=== PATIENT | male | born 1950 ===

== ENCOUNTER 2018-05-18 12:01 | Inpatient (IN) | payer MEDICARE, OTHER ==
[2018-05-18 13:47] LABS: BASO # 0.1 K/uL (0.0-0.2); MONO # 1.1 K/uL (0.0-0.8); RED CELL DISTRIBUTION WIDTH 13.9 % (11.5-14.5)
[2018-05-18 13:49] LABS: BASO % 0.3 % (0.0-2.0); LYMPH # 1.6 K/uL (1.0-4.3); LYMPH % 9.2 % (20.0-40.0); MEAN CELL VOLUME 91.8 fL (80.0-94.0); MEAN CORPUSCULAR HEMOGLOBIN 31.7 pg (27.0-31.0); MEAN CORPUSCULAR HGB CONC 34.5 g/dL (33.0-37.0); MEAN PLATELET VOLUME 8.8 fL (7.2-11.7); MONO % 6.2 % (0.0-10.0); NEUT # 14.2 K/uL (1.8-7.0); NEUT % 84.3 % (50.0-75.0); NRBC % 0.1 % (0.0-2.0); PLATELET COUNT 198 K/uL (130-400); WHITE BLOOD COUNT 16.9 K/uL (4.8-10.8)
[2018-05-18 13:58] LABS: ALB/GLOB RATIO 1.1 (1.0-2.1); ALBUMIN 4.4 g/dL (3.5-5.0); ALT/SGPT 28 U/L (21-72); AMYLASE 249 U/L (30-110); AST/SGOT 26 U/L (17-59); BLOOD UREA NITROGEN 10 mg/dL (9-20); CALCIUM 9.3 mg/dl (8.6-10.4); GFR NON-AFRICAN AMERICAN > 60; LIPASE 46 U/L (23-300)
[2018-05-18 14:01] LABS: SQUAMOUS EPITHIAL < 1 /hpf (0-5); URINE BILIRUBIN NEGATIVE (NEGATIVE); URINE BLOOD 1+ (NEGATIVE); URINE CLARITY Clear (Clear); URINE COLOR Yellow (YELLOW); URINE GLUCOSE (UA) NORMAL (Normal); URINE LEUKOCYTE ESTERASE NEG Leu/uL (Negative); URINE PROTEIN 1+ mg/dL (NEGATIVE); URINE UROBILINOGEN NORMAL mg/dL (0.2-1.0)
[2018-05-18] MEDS ORDERED: Iohexol 240 (50 ml) PO STA (14:13)
[2018-05-18] MEDS ORDERED: Iohexol 240 (50 ml) ONE (14:19)
[2018-05-18 14:39] LABS: BANDS 4 % (0-2); LYMPHOCYTE 8 % (20-40); MONOCYTE 6 % (0-10); NEUTROPHIL 82 % (50-75); TOTAL CELLS COUNTED 100
[2018-05-18 14:40] LABS: PLATELET ESTIMATE NORMAL (NORMAL)
[2018-05-18] MEDS ORDERED: Iohexol 350mg/ml 100 ML ONE (16:01)
--- NOTE | 2018-05-18 16:39 | CT ---
Date of service: 05/18/2018 PROCEDURE: CT Abdomen and Pelvis with contrast HISTORY: PAIN, VOMITING, ELEVATED WBCs COMPARISON: None. TECHNIQUE: Contrast dose: 100 mL Omnipaque 350 Radiation dose: Total exam DLP = 278.5 mGy-cm. This CT exam was performed using one or more of the following dose reduction techniques: Automated exposure control, adjustment of the mA and/or kV according to patient size, and/or use of iterative reconstruction technique. FINDINGS: LOWER THORAX: Cardiomegaly. No focal consolidation or pleural effusion. LIVER: Hepatic steatosis. Scattered hepatic cysts, the largest is in the posterior right hepatic lobe measuring 1.7 cm. No gross lesion or ductal dilatation. GALLBLADDER AND BILE DUCTS: Distended gallbladder with wall thickening/ edema and pericholecystic inflammatory change. Calcified gallstone seen in the cystic duct. CBD within normal limits. PANCREAS: Unremarkable. No gross lesion or ductal dilatation. SPLEEN: Unremarkable. ADRENALS: Unremarkable. No mass. KIDNEYS AND URETERS: Unremarkable. No hydronephrosis. No solid mass. VASCULATURE: Unremarkable. No aortic aneurysm. BOWEL: Colonic diverticulosis. No obstruction. No gross mural thickening. APPENDIX: Normal appendix. PERITONEUM: Large fat containing left inguinal hernia. No free fluid. No free air. LYMPH NODES: Unremarkable. No enlarged lymph nodes. BLADDER: Unremarkable. REPRODUCTIVE: Unremarkable. BONES: No acute fracture. Degenerative changes. OTHER FINDINGS: None. IMPRESSION: Acute cholecystitis with small calcified gallstone in the cystic duct. CBD within normal limits. Findings conveyed to the emergency department by Dr. Carmona at 4:34 p.m. on 05/18/2018.
[2018-05-18] MEDS ORDERED: Piperacillin/Tazobact 3.375 gm 100 ML IV STA (17:03)
--- NOTE | 2018-05-18 17:04 | C.PDOC ---
History Of Present Illness 67-year-old male, presents to the emergency department with complaints of upper abdominal pain, intermittently over the past several days. States he was seen by Dr Espinal, and given Rx for Pantoprazole, but he is non compliant.States yesterday pain worsened after he ate, followed by nausea and vomiting. Denies fever or chills. Time Seen by Provider: 05/18/18 12:35 Chief Complaint (Nursing): Abdominal Pain History Per: Patient History/Exam Limitations: no limitations Onset/Duration Of Symptoms: Days Current Symptoms Are (Timing): Still Present Severity: Moderate Past Medical History Reviewed: Historical Data, Nursing Documentation, Vital Signs Vital Signs: Last Vital Signs Temp 98.3 F 05/19/18 08:41 Pulse 71 05/19/18 08:41 Resp 20 05/19/18 08:41 BP 116/71 05/19/18 08:41 Pulse Ox 96 05/20/18 18:55 - Medical History PMH: HTN, Hypercholesterolemia Family History: States: No Known Family Hx - Social History Hx Alcohol Use: No Hx Substance Use: No - Immunization History Hx Tetanus Toxoid Vaccination: No Hx Influenza Vaccination: No Hx Pneumococcal Vaccination: No Review Of Systems Constitutional: Negative for: Fever Cardiovascular: Negative for: Chest Pain, Palpitations Respiratory: Negative for: Shortness of Breath Gastrointestinal: Positive for: Nausea, Vomiting, Abdominal Pain Musculoskeletal: Negative for: Back Pain Physical Exam - Physical Exam Appears: Non-toxic, No Acute Distress Skin: Normal Color, Warm, Dry, No Rash Head: Atraumatic, Normacephalic Eye(s): bilateral: Normal Inspection Nose: Normal Oral Mucosa: Moist Lips: Normal Appearing Neck: Normal ROM Chest: Symmetrical Cardiovascular: Rhythm Regular, No Murmur Respiratory: Normal Breath Sounds, No Accessory Muscle Use Gastrointestinal/Abdominal: Soft, Tenderness (Upper, periumbilical) Extremity: Normal ROM, No Deformity Neurological/Psych: Oriented x3, Normal Speech ED Course And Treatment - Laboratory Results Result Diagrams: 05/19/18 11:40 05/19/18 11:40 O2 Sat by Pulse Oximetry: 96 (RA) Pulse Ox Interpretation: Normal - CT Scan/US CT Other Rad Studies (CT/US): Read By Radiologist, Radiology Report Reviewed CT/US Interpretation: Accession No. : [id number]. Patient Name / ID : VALENTIN MARTINEZ / [id number]. Exam Date : 05/18/2018 16:05:52 ( Approved ). Study Comment : Sex / Age : M / 67Y. Creator : Reyna Frederick. Dictator : Jorgito Gilliam MD. Distillery Manager : Hepatologist : Jorgito Gilliam MD. Approver2 : Report Date : 05/18/2018 16:20:23. My Comment : . Date of service: 05/18/2018. PROCEDURE: CT Abdomen and Pelvis with contrast. HISTORY : PAIN, VOMITING, ELEVATED WBCs. COMPARISON: None. TECHNIQUE: Contrast dose : 100 mL Omnipaque 350. Radiation dose: Total exam DLP = 278.5 mGy-cm. This CT exam was performed using one or more of the following dose reduction techniques: Automated exposure control, adjustment of the mA and/or kV according to patient size, and/or use of iterative reconstruction technique. FINDINGS: LOWER THORAX: Cardiomegaly. No focal consolidation or pleural effusion. LIVER: Hepatic steatosis. Scattered hepatic cysts, the largest is in the posterior right hepatic lobe measuring 1.7 cm. No gross lesion or ductal dilatation. GALLBLADDER AND BILE DUCTS: Distended gallbladder with wall thickening/ edema and pericholecystic inflammatory change. Calcified gallstone seen in the cystic duct. CBD within normal limits. PANCREAS: Unremarkable. No gross lesion or ductal dilatation. SPLEEN: Unremarkable. ADRENALS: Unremarkable. No mass. KIDNEYS AND URETERS: Unremarkable. No hydronephrosis. No solid mass. VASCULATURE: Unremarkable. No aortic aneurysm. BOWEL: Colonic diverticulosis. No obstruction. No gross mural thickening. APPENDIX: Normal appendix. PERITONEUM: Large fat containing left inguinal hernia. No free fluid. No free air. LYMPH NODES: Unremarkable. No enlarged lymph nodes. BLADDER: Unremarkable. REPRODUCTIVE: Unremarkable. BONES: No acute fracture. Degenerative changes. OTHER FINDINGS: None. IMPRESSION: Acute cholecystitis with small calcified gallstone in the cystic duct. CBD within normal limits. Findings conveyed to the emergency department by Dr. Carmona at 4: 34 p.m. on 05/18/2018. Progress Note: Case was d/w who accepted patient to his service for an admission and will call Surgery consult . Medical Decision Making Medical Decision Making: Plan: * CT Abd/Pel * Bloodwork * Zosyn * UA * Reassess and Disposition Labs with significant Leukocytosis, Case discussed with surgery resident and Zosyn ordered. Disposition - Disposition Disposition: HOSPITALIZED Disposition Time: 18:36 Condition: FAIR - Clinical Impression Clinical Impression: Acute cholecystitis - Scribe Statement The provider has reviewed the documentation as recorded by the Scribe (Annabelle Kellogg) All medical record entries made by the Scribe were at my direction and personally dictated by me. I have reviewed the chart and agree that the record accurately reflects my personal performance of the history, physical exam, medical decision making, and the department course for this patient. I have also personally directed, reviewed, and agree with the discharge instructions and disposition. Decision To Admit - Pt Status Changed To: Hospital Disposition Of: Inpatient - Admit Certification Admit to Inpatient:: After my assessment, the patient will require hospitalization for at least two midnights. This is because of the severity of symptoms shown, intensity of services needed, and/or the medical risk in this patient being treated as an outpatient. - InPatient: Physician Admission Certification:: pt will need to stay for more then 2 days - . Bed Request Type: Regular Admitting Physician: Michelle Espinal Patient Diagnosis: Acute cholecystitis
[2018-05-18] MEDS ORDERED: Piperacillin/Tazobact 3.375 gm 100 ML IVPB ONE (17:35)
[2018-05-18] MEDS ORDERED: Piperacillin/Tazobact 3.375 GM in Sodium Chloride 100 ML IVPB SCH (18:45)
[2018-05-18] MEDS: Lactated Ringer's 1,000 ML IV SCH (20:15)
--- NOTE | 2018-05-18 20:40 | CP.PCM.CON ---
History of Present Illness - History of Present Illness History of Present Illness: 67M with PMH of hypertension, depression, diabetes, glaucoma, presents to [facility] ED with complaints of abdominal pain. Patient reports abdominal pain has been on going for past 3-4 days. He reports having a couple of bouts of emesis. Patient denies any association with abdominal pain and food intake. States pain is located at epigastric region and at times will radiate towards RUQ. At time of examination patient denied fever/chills, nausea/vomiting, abdominal pain. PMH:Hypertension, depression, diabetes, glaucoma Fam Hx: DM, HTN Social history: Denies EtOH, Denies illicit drug use Review of Systems - Review of Systems Review of Systems: 12 pt ROS negative, except as stated in HPI Past Patient History - Past Social History Smoking Status: Never Smoked - CARDIAC Hx Hypercholesterolemia: Yes Hx Hypertension: Yes - ENDOCRINE/METABOLIC Hx Diabetes Mellitus Type 2: Yes - PSYCHIATRIC Hx Substance Use: No - SURGICAL HISTORY Hx Surgeries: No - ANESTHESIA Hx Anesthesia: No Meds Allergies/Adverse Reactions: Allergies Allergy/AdvReac Type Severity Reaction Status Date / Time No Known Allergies Allergy Unverified 05/18/18 12:12 - Medications Medications: Current Medications Acetaminophen (Tylenol 325mg Tab) 650 mg PO STAT PRN PRN Reason: fever>100.4 Clonazepam (Klonopin) 0.5 mg PO HS [facility] Lactated Ringer's (Lactated Ringer's) 1,000 mls @ 100 mls/hr IV .Q10H [facility] Last Admin: 05/18/18 20:15 Dose: 100 mls/hr Piperacillin Sod/Tazobactam Sod (Zosyn 3.375 Gm Iv Premix) 3.375 gm in 50 mls @ 100 mls/hr IVPB Q6H [facility] PRN Reason: Protocol Ondansetron HCl (Zofran Inj) 4 mg IVP Q6H PRN PRN Reason: Nausea/Vomiting Pantoprazole Sodium (Protonix Inj) 40 mg IVP DAILY [facility] Physical Exam - Constitutional Appears: No Acute Distress - Head Exam Head Exam: NORMOCEPHALIC - ENT Exam ENT Exam: Mucous Membranes Moist - Respiratory Exam Respiratory Exam: NORMAL BREATHING PATTERN - Cardiovascular Exam Cardiovascular Exam: +S1, +S2 - GI/Abdominal Exam GI & Abdominal Exam: Soft. absent: Distended, Firm, Guarding, Tenderness - Neurological Exam Neurological exam: Alert, Oriented x3 - Psychiatric Exam Psychiatric exam: Normal Mood - Skin Skin Exam: Dry, Intact, Warm Results - Vital Signs Recent Vital Signs: Last Vital Signs Temp 97.7 F 05/18/18 16:36 Pulse 70 05/18/18 16:36 Resp 14 05/18/18 16:36 BP 144/88 05/18/18 16:36 Pulse Ox 96 05/18/18 18:37 - Labs Result Diagrams: 05/18/18 13:43 05/18/18 13:43 Labs: Laboratory Results - last 24 hr 05/18/18 05/18/18 05/18/18 13:43 13:43 13:43 WBC 16.9 H RBC 4.40 Hgb 14.0 Hct 40.4 MCV 91.8 MCH 31.7 H MCHC 34.5 RDW 13.9 Plt Count 198 MPV 8.8 Neut % (Auto) 84.3 H Lymph % (Auto) 9.2 L [place] % (Auto) 6.2 Eos % (Auto) 0.0 Baso % (Auto) 0.3 Neut # (Auto) 14.2 H Lymph # (Auto) 1.6 [place] # (Auto) 1.1 H Eos # (Auto) 0.0 Baso # (Auto) 0.1 Neutrophils % (Manual) 82 H Band Neutrophils % 4 H Lymphocytes % (Manual) 8 L Monocytes % (Manual) 6 Platelet Estimate Normal RBC Morphology Normal Sodium 135 Potassium 3.6 Chloride 97 L Carbon Dioxide 25 Anion Gap 17 BUN 10 Creatinine 1.0 Est GFR ( Amer) > 60 Est GFR (Non-Af Amer) > 60 Random Glucose 122 H Calcium 9.3 Total Bilirubin 0.8 AST 26 ALT 28 Alkaline Phosphatase 97 Total Protein 8.4 H Albumin 4.4 Globulin 4.0 H Albumin/Globulin Ratio 1.1 Amylase 249 H Lipase 46 Urine Color Yellow Urine Clarity Clear Urine pH 6.0 Ur Specific [place] 1.017 Urine Protein 1+ H Urine Glucose (UA) Normal Urine Ketones Trace Urine Blood 1+ H Urine Nitrate Negative Urine Bilirubin Negative Urine Urobilinogen Normal Ur Leukocyte Esterase Neg Urine WBC (Auto) 3 Urine RBC (Auto) 8 H Ur Squamous Epith Cells < 1 Hyaline Casts 6-10 H Assessment & Plan - Assessment and Plan (Free Text) Assessment: 67M with chronic cholecystitis Plan: -NPO -IVF -ABx -Analgesic prn -Anti-emetic prn -F/u Abd U/S -F/u AM labs D/w Dr. Alesia Russ PGY3
[2018-05-18 23:16] VITALS: RESP 20; O2SAT 96
[2018-05-19] MEDS: Lactated Ringer's 1,000 ML IV SCH (04:56)
[2018-05-19] MEDS: Piperacill/Tazo 3.375gm in Dex 3.375 GM/50 ML BAG IVPB SCH ×2 (04:57→09:49)
--- NOTE | 2018-05-19 08:15 | CP.PCM.HP ---
History of Present Illness - History of Present Illness History of Present Illness: Chief complaint: Abdominal pain HPI: 67-year-old male with a history of hypertension, depression, diabetes, glaucoma came to the emergency room with the comparing of at least 3-4 days history of increasing abdominal pain, epigastric pain, nausea, and episodes of vomiting started yesterday. Patient the past was having ongoing abdominal pain, at the time patient was given proton pump inhibitor, but patient was not taking it on a regular basis. He was also seen by irrigation equipment mechanic. He comes to the emergency room with the worsening pain, epigastric in origin, radiating to the back sometimes. Nausea noted, associated with the 1-2 episodes of vomiting bilious. He did not have any fever No chills noted. Denies any headache. No other systemic symptoms Past medical history: Hypertension, depression, diabetes, glaucoma Surgical history: Dilated patient of urethral stricture in the past and Family history: Parents had a history of diabetes and hypertension Siblings also has a history of diabetes hypertension and obstructive sleep apnea Social history: Nonsmoker nonalcoholic Current medications noted from the chart Review of system: He has no headache No visual symptom history of glaucoma No chest pain or shortness of breath Abdominal pain in the right upper quadrant area. Associated nausea and vomiting No diarrhea HIGH SCALER negative symptoms On examination: Vital signs stable. Chest bilateral good air entry Regular heart sound Nontender abdomen now Bowel sounds are normal Labs reviewed Normal chemistry. Elevated WBC noted Liver function test is normal, lipase is negative CAT scan of the abdomen suggestive of gallbladder wall thickening, stone in the suspected CBD No CBD dilatation identified Assessment: 67 male with a history of diabetes hypertension depression and glaucoma. He now admitted with a suspected acute cholecystitis, and the possibility of gallbladder stone. Recommendation: Surgical evaluation was called in. Ultrasound pending at this time. Antibiotic. Glucose monitoring. DVT GI prophylaxis Will recommend HIDA scan tomorrow. Keeping nothing by mouth And will follow the patient Present on Admission - Present on Admission Any Indicators Present on Admission: No History of DVT/PE: No History of Uncontrolled Diabetes: No Urinary Catheter: No Decubitus Ulcer Present: No Past Patient History - Past Medical History & Family History Past Medical History?: Yes - Past Social History Smoking Status: Never Smoked - CARDIAC Hx Hypercholesterolemia: Yes Hx Hypertension: Yes - ENDOCRINE/METABOLIC Hx Diabetes Mellitus Type 2: Yes - MUSCULOSKELETAL/RHEUMATOLOGICAL Hx Falls: No - PSYCHIATRIC Hx Substance Use: No - SURGICAL HISTORY Hx Surgeries: No - ANESTHESIA Hx Anesthesia: No Meds Allergies/Adverse Reactions: Allergies Allergy/AdvReac Type Severity Reaction Status Date / Time No Known Allergies Allergy Unverified 05/18/18 12:12 Results - Vital Signs Recent Vital Signs: Last Vital Signs Temp 98.8 F 05/19/18 00:31 Pulse 64 05/19/18 00:31 Resp 20 05/19/18 00:31 BP 108/70 05/19/18 00:31 Pulse Ox 96 05/19/18 00:31 - Labs Result Diagrams: 05/18/18 13:43 05/18/18 13:43 Labs: Laboratory Results - last 24 hr 05/18/18 05/18/18 05/18/18 13:43 13:43 13:43 WBC 16.9 H RBC 4.40 Hgb 14.0 Hct 40.4 MCV 91.8 MCH 31.7 H MCHC 34.5 RDW 13.9 Plt Count 198 MPV 8.8 Neut % (Auto) 84.3 H Lymph % (Auto) 9.2 L [place] % (Auto) 6.2 Eos % (Auto) 0.0 Baso % (Auto) 0.3 Neut # (Auto) 14.2 H Lymph # (Auto) 1.6 [place] # (Auto) 1.1 H Eos # (Auto) 0.0 Baso # (Auto) 0.1 Neutrophils % (Manual) 82 H Band Neutrophils % 4 H Lymphocytes % (Manual) 8 L Monocytes % (Manual) 6 Platelet Estimate Normal RBC Morphology Normal Sodium 135 Potassium 3.6 Chloride 97 L Carbon Dioxide 25 Anion Gap 17 BUN 10 Creatinine 1.0 Est GFR ( Amer) > 60 Est GFR (Non-Af Amer) > 60 POC Glucose (mg/dL) Random Glucose 122 H Calcium 9.3 Total Bilirubin 0.8 AST 26 ALT 28 Alkaline Phosphatase 97 Total Protein 8.4 H Albumin 4.4 Globulin 4.0 H Albumin/Globulin Ratio 1.1 Amylase 249 H Lipase 46 Urine Color Yellow Urine Clarity Clear Urine pH 6.0 Ur Specific [place] 1.017 Urine Protein 1+ H Urine Glucose (UA) Normal Urine Ketones Trace Urine Blood 1+ H Urine Nitrate Negative Urine Bilirubin Negative Urine Urobilinogen Normal Ur Leukocyte Esterase Neg Urine WBC (Auto) 3 Urine RBC (Auto) 8 H Ur Squamous Epith Cells < 1 Hyaline Casts 6-10 H 05/18/18 05/19/18 21:38 07:07 WBC RBC Hgb Hct MCV MCH MCHC RDW Plt Count MPV Neut % (Auto) Lymph % (Auto) [place] % (Auto) Eos % (Auto) Baso % (Auto) Neut # (Auto) Lymph # (Auto) [place] # (Auto) Eos # (Auto) Baso # (Auto) Neutrophils % (Manual) Band Neutrophils % Lymphocytes % (Manual) Monocytes % (Manual) Platelet Estimate RBC Morphology Sodium Potassium Chloride Carbon Dioxide Anion Gap BUN Creatinine Est GFR ( Amer) Est GFR (Non-Af Amer) POC Glucose (mg/dL) 104 98 Random Glucose Calcium Total Bilirubin AST ALT Alkaline Phosphatase Total Protein Albumin Globulin Albumin/Globulin Ratio Amylase Lipase Urine Color Urine Clarity Urine pH Ur Specific [place] Urine Protein Urine Glucose (UA) Urine Ketones Urine Blood Urine Nitrate Urine Bilirubin Urine Urobilinogen Ur Leukocyte Esterase Urine WBC (Auto) Urine RBC (Auto) Ur Squamous Epith Cells Hyaline Casts
[2018-05-19 08:43] VITALS: BP 116/71; PULSE 71; TEMP 98.3
--- NOTE | 2018-05-19 10:29 | NM ---
Date of service: 05/19/18 Nuclear medicine hepatobiliary scan Indication: Right upper quadrant pain. Nausea and vomiting. CBD obstruction. Technique: Frontal dynamic images of the abdomen and pelvis were obtained over 60 minutes following the IV administration of 5.5 mCi TC Mebrofonin. Comparison: CT abdomen and pelvis with oral and IV contrast performed 05/18/18, abdominal ultrasound performed 05/18/18 Findings: The liver appears unremarkable. Homogeneous radiotracer uptake is evident. There is prompt hepatic uptake of radiotracer at 5 minutes. The intrahepatic bile ducts are visualized at 10 minutes. The intrahepatic and extrahepatic bile ducts are visualized at 15 minutes. The gallbladder is visualized at 35 minutes. The gallbladder fills in more at 60 minutes. The small bowel is visualized at 15-20 minutes. Impression: There is visualization of the gallbladder and small bowel excluding the possibility of cystic duct and common bile duct obstruction. Preliminary impression was provided by virtual radiologic.
--- NOTE | 2018-05-19 11:13 | CP.PCM.PN ---
Subjective - Date & Time of Evaluation Date of Evaluation: 05/19/18 Time of Evaluation: 11:10 - Subjective Subjective: Surgery Pt seen and examined. Pain improved. Denies nausea. Pt wants to go home and have elective BG surgery. Surgery option offered. Objective - Vital Signs/Intake and Output Vital Signs (last 24 hours): Temp Pulse Resp BP Pulse Ox 98.3 F 71 20 116/71 96 05/19/18 08:41 05/19/18 08:41 05/19/18 08:41 05/19/18 08:41 05/19/18 08:41 Intake and Output: 05/19/18 05/19/18 06:59 18:59 Intake Total 800 Balance 800 - Medications Medications: Current Medications Acetaminophen (Tylenol 325mg Tab) 650 mg PO STAT PRN PRN Reason: fever>100.4 Clonazepam (Klonopin) 0.5 mg PO HS [facility] Last Admin: 05/18/18 22:22 Dose: 0.5 mg Lactated Ringer's (Lactated Ringer's) 1,000 mls @ 100 mls/hr IV .Q10H [facility] Last Admin: 05/19/18 04:56 Dose: 100 mls/hr Piperacillin Sod/Tazobactam Sod (Zosyn 3.375 Gm Iv Premix) 3.375 gm in 50 mls @ 100 mls/hr IVPB Q6H [facility] PRN Reason: Protocol Last Admin: 05/19/18 09:49 Dose: 100 mls/hr Ondansetron HCl (Zofran Inj) 4 mg IVP Q6H PRN PRN Reason: Nausea/Vomiting Pantoprazole Sodium (Protonix Inj) 40 mg IVP DAILY [facility] Last Admin: 05/19/18 09:49 Dose: 40 mg - Labs Labs: 05/18/18 13:43 05/18/18 13:43 - Constitutional Appears: No Acute Distress - Head Exam Head Exam: ATRAUMATIC, NORMAL INSPECTION, NORMOCEPHALIC - Eye Exam Eye Exam: EOMI, Normal appearance, PERRL Pupil Exam: NORMAL ACCOMODATION, PERRL - ENT Exam ENT Exam: Mucous Membranes Moist, Normal Exam - Neck Exam Neck Exam: Full ROM, Normal Inspection. absent: Lymphadenopathy - Respiratory Exam Respiratory Exam: Clear to Ausculation Bilateral, NORMAL BREATHING PATTERN - Cardiovascular Exam Cardiovascular Exam: REGULAR RHYTHM, +S1, +S2. absent: Murmur - GI/Abdominal Exam GI & Abdominal Exam: Soft, Normal Bowel Sounds. absent: Distended, Tenderness - Extremities Exam Extremities Exam: Full ROM, Normal Capillary Refill, Normal Inspection. absent : Joint Swelling, Pedal Edema - Back Exam Back Exam: NORMAL INSPECTION - Neurological Exam Neurological Exam: Alert, Awake, CN II-XII Intact, Normal Gait, Oriented x3 - Psychiatric Exam Psychiatric exam: Normal Affect, Normal Mood - Skin Skin Exam: Dry, Intact, Normal Color, Warm Assessment and Plan - Assessment and Plan (Free Text) Assessment: 67M with cholelithiasis Plan: Ok to DC Follow up at Dr. Dumas's office to schedule surgery Low fat diet Return to ED if abd pain /nausea/vomiting. D/w Dr. Dumas
[2018-05-19 11:52] LABS: BASO % 0.3 % (0.0-2.0); EOS # 0.2 K/uL (0.0-0.7); EOS % 2.2 % (0.0-4.0); HEMOGLOBIN 12.8 g/dL (12.0-18.0); LYMPH # 1.3 K/uL (1.0-4.3); MEAN CELL VOLUME 93.4 fL (80.0-94.0); MEAN CORPUSCULAR HGB CONC 34.2 g/dL (33.0-37.0); MEAN PLATELET VOLUME 9.4 fL (7.2-11.7); MONO # 0.6 K/uL (0.0-0.8); NEUT # 7.5 K/uL (1.8-7.0); NEUT % 78.5 % (50.0-75.0); RBC 3.99 Mil/uL (4.40-5.90); RED CELL DISTRIBUTION WIDTH 14.3 % (11.5-14.5); WHITE BLOOD COUNT 9.6 K/uL (4.8-10.8)
[2018-05-19 12:08] LABS: ALB/GLOB RATIO 1.1 (1.0-2.1); ALBUMIN 3.6 g/dL (3.5-5.0); ALT/SGPT 30 U/L (21-72); AST/SGOT 24 U/L (17-59); BLOOD UREA NITROGEN 11 mg/dL (9-20); GFR NON-AFRICAN AMERICAN > 60
--- NOTE | 2018-05-19 16:52 | US ---
Date of service: 05/18/2018 HISTORY: Abdominal pain COMPARISON: Comparison made with CT scan abdomen pelvis 05/18/2018 at 1611 hours TECHNIQUE: Sonographic evaluation of the abdomen. FINDINGS: LIVER: Liver was measured at the nearly 16 the cm in CC dimension on this study though liver is measured just over 18 cm in CC dimension on concurrent CT scan. Liver demonstrates smooth contour however mild increased echotexture consistent with fatty infiltration. There are multiple small cystic foci scattered throughout the right and left lobes of the liver seen to much better advantage on prior CT scan. Please refer to that report for additional details. . No intrahepatic bile duct dilatation. GALLBLADDER: Unremarkable. No gallstones however there appears to be a small amount of intraluminal gallbladder sludge. . Mild gallbladder wall thickening and/or edema. Rule out acute cholecystitis. No evidence of pericholecystic fluid collections or sonographic Conn sign. The COMMON BILE DUCT: Measures 5.0 mm. . Previously described cystic duct stone which was seen and described on the earlier CT scan of the abdomen and pelvis is not well delineated on this exam. . PANCREAS: Pancreas is poorly delineated due to body habitus and bowel gas. . RIGHT KIDNEY: Measures 9.2 x 3.7 x 4.4cm. Normal echogenicity. No calculus, mass, or hydronephrosis. LEFT KIDNEY: Measures 9.8 x 4.3 x 4.6cm. Normal echogenicity. No calculus, mass, or hydronephrosis. SPLEEN: Normal in size and contour. No mass. AORTA: No aneurysmal dilatation. IVC: Unremarkable. OTHER FINDINGS: None. IMPRESSION: Findings consistent with borderline hepatomegaly and fatty infiltration. Multiple hepatic cysts as seen to much better advantage on prior CT scan. Please refer to that study and corresponding report for additional details. Small amount of intraluminal gallbladder sludge. Mild gallbladder wall thickening and/or edema. Rule out acute cholecystitis. Previously described small cystic duct stone as seen on prior CT scan is not appreciated on this exam.
== END 2018-05-19 14:30 | disposition home or self-care (01) | DRG 446 ==
LOC: C.ER 12:01 → C.9E 18:36 → C.3T 20:06
PROVIDERS: ADMIT Internal Medicine; ATTEND Internal Medicine
DX: K80.12 Calculus of gallbladder with acute and chronic cholecystitis without obstruction (principal); E11.9 Type 2 diabetes mellitus without complications; I10 Essential (primary) hypertension; E78.00 Pure hypercholesterolemia, unspecified; H40.9 Unspecified glaucoma; Z91.19 Patient's noncompliance with other medical treatment and regimen

== ENCOUNTER 2018-06-25 05:50 | Day surgery (SDC) | payer MEDICARE, OTHER ==
[2018-06-11 10:50] VITALS: BMI 23.6
[2018-06-25] MEDS ORDERED: Iohexol 240 (50 ml) ONE (07:03)
[2018-06-25] MEDS ORDERED: ceFAZolin IV 1 gm in Dextrose 1 GM/50 ML BAG IVPB ONE (07:03)
[2018-06-25] MEDS ORDERED: Midazolam 2 MG/2 ML VIAL ONE (07:52)
[2018-06-25] MEDS ORDERED: Propofol 10 mg/ml Inj (20 ML) ONE (07:53)
--- NOTE | 2018-06-25 09:55 | PCM.SURG1 ---
<[place] - Last Filed: 06/25/18 09:53> Surgeon's Initial Post Op Note - Surgeon's Notes Surgeon: Dr Dumas Supervisor Blood Donor Recruiters: Dr Lopez PGY4, Lulu MS3 Type of Anesthesia: General Endo Pre-Operative Diagnosis: cholelithiasis Operative Findings: as above. patent CBD with no stones (cholangiogram). posterior cystic artery branch Post-Operative Diagnosis: as above Operation Performed: laparoscopic cholecystectomy. intraoperative cholangiogram Specimen/Specimens Removed: gallbladder Estimated Blood Loss: EBL {In ML}: 10 Blood Products Given: N/A Drains Used: No Drains Post-Op Condition: Good Date of Surgery/Procedure: 06/25/18 Time of Surgery/Procedure: 09:55 <Michael Dumas Jr. - Last Filed: 06/25/18 10:30> Surgeon's Initial Post Op Note - Surgeon's Notes Operative Findings: additional structure medial to GB bed consistent with large cyst
[2018-06-25] MEDS ORDERED: HYDROmorphone 0.5 mg/0.5 ml ISec IVP PRN (09:57)
[2018-06-25] MEDS ORDERED: HYDROmorphone 0.5 mg/0.5 ml ISec ONE (09:58)
[2018-06-25] MEDS ORDERED: Neostigmine Methylsulfate 3mg/3ml Syringe IV ONE (10:35)
[2018-06-25] MEDS ORDERED: Etomidate 20 mg/10ml Inj IV ONE (10:35)
[2018-06-25] MEDS ORDERED: Rocuronium 10 mg/ml (10 ml) ONE (10:36)
[2018-06-25 12:09] VITALS: BP 126/78; PULSE 62; RESP 18; TEMP 97.7; O2SAT 98
--- NOTE | 2018-06-25 20:15 | OP ---
PROCEDURE DATE: 06/25/2018 PREOPERATIVE DIAGNOSES: Cholecystitis, cholelithiasis. POSTOPERATIVE DIAGNOSES: Cholecystitis, cholelithiasis. PROCEDURE: Laparoscopic cholecystectomy with C-arm cholangiogram. SURGEON: Michael Dumas Jr., MD STEAMFITTER: Dr. Lopez. ANESTHESIOLOGIST: . TYPE OF ANESTHESIA: General. INDICATIONS: The patient is a middle-aged man with abdominal pain found to have gallstones. OPERATIVE FINDINGS: Cholangiogram carried out through the cystic duct showed free flow into the duodenum, good visualization of the hepatic radicles. In addition, in the right lobe of the liver, there is another structure, which initially appeared to be the gallbladder. This is a large cystic structure medial to the gallbladder fossa. This was not biopsied, disturbed or aspirated. The rest of the intraoperative findings were unremarkable. DESCRIPTION OF PROCEDURE: The patient was given general anesthesia. Intravenous antibiotics. Venodyne boots were applied. Aidan trocar was inserted by cut-down technique. Two additional 5-mm trocars were placed. The cystic duct, cystic artery, the liver bed and a view of safety was obtained. After this had been done, the structures were clipped, the cholangiogram carried out and the gallbladder was removed from the liver bed. The findings on the cholangiogram are as mentioned above. We then obtained hemostasis, checked at the end for hemostasis using a closer device, contain an airtight closure on the umbilical incisions. Blood loss for the procedure was 10 mL. Operation carried out, laparoscopic cholecystectomy with C-arm cholangiogram. Michael Dumas Jr., MD cc: Michelle Espinal MD
--- NOTE | 2018-06-26 14:59 | RAD ---
Date of service: 06/25/2018 PROCEDURE: Intraoperative Fluoroscopy. HISTORY: CHOLETHIASIS FINDINGS: Fluoroscopic assistance was provided. Fluoroscopy time = 9.4 sec. Radiation dose = 1.12 mGy. Please refer to the operative report from CARIN Vuong.
== END 2018-06-25 12:20 | disposition home or self-care (01) ==
LOC: C.SDS 05:50
PROVIDERS: ATTEND Surgery Vascular Surgery
DX: K80.10 Calculus of gallbladder with chronic cholecystitis without obstruction (principal)
CPT/HCPCS: 47563; 74300; 82948; 88304; J0690; J1170; J2001; J2250; J2704; J2710; J3010